=== PATIENT | male | born 1990 | race Caucasian/White ===

== ENCOUNTER 2017-09-29 08:58 | Emergency (ER) | payer MEDICAID ==
[~2017-09-29] VITALS: Ht 180.3 cm; Wt 109.0 kg
[2017-09-29 09:00] VITALS: BP 158/106
== END 2017-09-29 11:23 | disposition left against medical advice (07) ==
LOC: EMS 09:00
DX: R51 Headache (principal); Z53.21 Procedure and treatment not carried out due to patient leaving prior to being seen by health care provider